=== PATIENT | female | born 1955 | race Asian ===

== ENCOUNTER 2019-03-25 13:52 | Inpatient (IN) | payer BC ==
[2019-03-25] VITALS (10 sets, daily range): BP systolic 129–147; BP diastolic 61–96
[~2019-03-25] VITALS: Ht 160 cm; Wt 68.2 kg
[2019-03-25] MEDS ORDERED: morphine 4 MG/ML inj SYRINge IV PRN ×3 (14:20→16:00)
[2019-03-25] MEDS ORDERED: ondansetron/PF 4mg/2ml inj IV ONE (14:20)
[2019-03-25] MEDS ORDERED: normal saline 1000ML IV soln IVB ONE (14:20)
[2019-03-25 14:52] LABS: URINE HCG NEGATIVE (NEG)
[2019-03-25 14:53] LABS: CLARITY,URINE CLEAR (Clear); COLOR,URINE YELLOW (Yellow); GLUCOSE, URINE NEGATIVE (Neg); KETONES,URINE NEGATIVE (Neg); LEUKOCYTE ESTERASE ,URINE NEGATIVE (Neg); NITRITES, URINE NEGATIVE (Neg); OCCULT BLOOD,URINE TRACE-INTACT (Neg); PH,URINE 6.5 (4.8-8.0); PROTEIN,URINE NEGATIVE (Neg); UROBILINOGEN,URINE 0.2 E.U/dL (0.2-1.0)
[2019-03-25 14:56] LABS: UA COLLECTION TYPE CLN CATCH MIDSTREAM
[2019-03-25 15:06] LABS: MUCUS STRANDS FEW /LPF (Neg); SQUAMOUS EPITHELIAL CELL,UR FEW /LPF (FEW)
[2019-03-25 15:08] LABS: BACTERIA,URINE 1+ /HPF (Neg); RBC,URINE 0-2 /HPF (0-2); WBC,URINE 0-4 /HPF (0-4)
[2019-03-25 15:09] LABS: ALANINE AMINOTRANSFERASE 26 U/L (12-78); ALBUMIN/GLOBULIN RATIO 1.1 (1.1-1.5); ALKALINE PHOSPHATASE 67 IU/L (46-116); ANION GAP 11 (8-16); ASPARTATE AMINO TRANSFERASE 12 U/L (10-37); BILIRUBIN,TOTAL 0.6 MG/DL (0.1-1.0); BLOOD UREA NITROGEN 17 MG/DL (7-18); BUN/CREATININE RATIO 14.9 (6.6-38.0); CALCIUM 9.2 MG/DL (8.5-10.1); CHLORIDE 104 MMOL/L (99-107); CREATININE 1.14 MG/DL (0.40-0.90); GLUCOSE 94 MG/DL (70-104); LIPASE 219 U/L (73-393); POTASSIUM 3.6 MMOL/L (3.5-5.1); SODIUM 143 MMOL/L (135-145); TOTAL PROTEIN 7.8 G/DL (6.4-8.2); eGFR 48 ML/MIN
[2019-03-25 15:09] LABS: AMORPHOUS PHOSPHATES 2+
--- NOTE | 2019-03-25 15:18 | NUR ---
Ailyn lee in [facility] - 03/25/19 at 1522 by JUAN PT OUT TO CT VIA WHEELCHAIR WITH WINDOWS SUPPORT ENGINEER
[2019-03-25 15:19] LABS: BASOPHILS % (AUTO) 0.3 % (0-1); EOSINOPHILS % (AUTO) 0.3 % (0-6); HEMATOCRIT 46.8 % (35.0-45.0); HEMOGLOBIN 16.3 g/dl (12.0-16.0); LYMPHOCYTES # (AUTO) 0.9 X10'3 (1.1-4.8); LYMPHOCYTES % (AUTO) 6.7 % (21-51); MEAN CORPUSCULAR HEMOGLOBIN 31.6 PG (27.0-31.0); MEAN CORPUSCULAR HGB CONC 34.8 g/dL (33.0-36.5); MEAN CORPUSCULAR VOLUME 90.9 FL (78-98); MEAN PLATELET VOLUME 7.9 FL (7.4-10.4); MONOCYTES # (AUTO) 0.6 X10'3 (0-0.9); MONOCYTES % (AUTO) 4.6 % (2-12); NEUTROPHILS # (AUTO) 11.6 X10'3 (1.8-7.7); NEUTROPHILS % (AUTO) 88.1 % (42-75); PLATELET COUNT 154 X10'3 (140-440); RED BLOOD COUNT 5.14 X10'6 (4.20-5.60); RED CELL DISTRIBUTION WIDTH 13.5 % (11.5-14.5); WHITE BLOOD COUNT 13.1 X10'3 (4.5-11.0)
[2019-03-25] MEDS ORDERED: normal saline 1000ml 1,000 ML IV ONE (15:25)
[2019-03-25] MEDS ORDERED: LEVO25TA2 PO (15:36)
[2019-03-25] MEDS ORDERED: FENO48TA16 PO (15:36)
[2019-03-25] MEDS ORDERED: piperacillin/tazo 3.375gm/50ml 50 ML IV ONE (15:40)
[2019-03-25] MEDS ORDERED: HYDROcodone/acetaminophen 5mg/325mg tablet PO PRN (15:45)
[2019-03-25] MEDS ORDERED: ondansetron/PF 4mg/2ml inj IV PRN ×2 (15:45→16:00)
[2019-03-25] MEDS: normal saline 1000ml 1,000 ML IV SCH (15:45)
[2019-03-25] MEDS ORDERED: morphine 2 MG/ML inj. syringe IV PRN (15:45)
[2019-03-25] MEDS ORDERED: magnesium 4gm in 100ml NS 100 ML IV PRN (15:45)
[2019-03-25] MEDS ORDERED: magnesium Cl slow-release 64mg tablet PO PRN (15:45)
[2019-03-25] MEDS ORDERED: mag hydrox/Alum hydrox/simeth 30ml oral suspension PO PRN (15:45)
[2019-03-25] MEDS ORDERED: magnesium hydroxide 30ml (MOM) UD suspension PO PRN (15:45)
[2019-03-25] MEDS ORDERED: magnesium 2GM in 50ml NS 50 ML IV PRN (15:45)
[2019-03-25] MEDS ORDERED: potassium Cl 20 mEq SR tablet PO PRN ×2 (15:45)
[2019-03-25] MEDS ORDERED: potassium CL 10mEq/100ml bag 100 ML IV PRN ×2 (15:45)
[2019-03-25] MEDS ORDERED: ringers solution, lacted 1,000 ML IV SCH (15:59)
[2019-03-25] MEDS ORDERED: ringers solution, lacted 1,000 ML IV ONE (15:59)
[2019-03-25] MEDS ORDERED: labetalol 20mg/4ml (5mg/ml) syringe IV PRN (16:00)
[2019-03-25] MEDS ORDERED: enalaprilat dihydrate 2.5mg/2ml vial IV PRN (16:00)
[2019-03-25] MEDS ORDERED: fentaNYL/PF 50MCG/1 ML 2ML syringe IV PRN ×2 (16:00)
[2019-03-25] MEDS: piperacillin/tazo 3.375gm/50ml 50 ML IV SCH (16:00)
[2019-03-25] MEDS: morphine 2 MG/ML inj. syringe IV PRN ×2 (18:53→23:12)
[2019-03-25] MEDS ORDERED: ceFAZolin 1000mg inj ONE (18:55)
[2019-03-25] MEDS ORDERED: BUPIVAcaine/PF 2.5 mg/ml (0.25%) 30ml vial ONE (18:55)
--- NOTE | 2019-03-25 19:23 | NUR ---
REPORT GIVEN TO OR TECH - PT WAS GIVEN ZOSYN BY DAY SHIFT AND THEN PHARMACY BROUGHT ANOTHER. IT HAS NOT BEEN GIVEN AND WAS SENT WITH PT - SHE HAS ALL CLOTHING REMOVED, EXTENSION SET ON IV TUBING, EKG HAS BEEN DONE, CONSENT ON CHART, SURGICAL WIPES USED ON ABD.
[2019-03-25] MEDS ORDERED: fentaNYL/PF 50MCG/1 ML 2ML syringe ONE ×2 (19:32→20:29)
[2019-03-25] MEDS ORDERED: midazolam 2 mg/2 ml injection ONE (19:32)
[2019-03-25] MEDS ORDERED: ondansetron/PF 4mg/2ml inj ONE ×2 (19:35→20:29)
[2019-03-25] MEDS ORDERED: dexamethasone sod phosphate 10mg/ml inj ONE (19:55)
[2019-03-25] MEDS ORDERED: rocuronium 10mg/ml inj IV ONE (19:55)
[2019-03-25] MEDS ORDERED: sevoflurane 250ml liquid IH ONE (19:55)
[2019-03-25] MEDS ORDERED: glycopyrrolate 0.2mg/ml inj ONE (19:55)
[2019-03-25] MEDS ORDERED: neostigmine methylsulfate 1 MG/ML 10ml vial ONE (19:55)
[2019-03-25] MEDS: lactobacillus rhamnosus 10,000 MMU CELLS/CAPSULE PO SCH (20:00)
[2019-03-25] MEDS ORDERED: LIDOcaine 2% (20mg/ml) 5ml vial ONE (20:29)
[2019-03-25] MEDS ORDERED: propofol inj 20 ML IV ONE (20:29)
[2019-03-25] MEDS ORDERED: gentamicin 40 MG/1 ML inj ONE (20:51)
[2019-03-25] MEDS ORDERED: clindamycin phosphate 150mg/ml inj. ONE (20:51)
[2019-03-25] MEDS ORDERED: BUPIVACAINE liposomal/PF 13.3 MG/ML vial IM ONE ×2 (21:00→21:01)
[2019-03-25] MEDS ORDERED: BUPIVAcaine/PF 2.5mg/ml (0.25%) 10ml vial ONE (21:01)
--- NOTE | 2019-03-25 21:33 | NUR ---
Received from OR via , accompanied by Anesthesiologist DR REYES and report given by Anesthesiolgist. AWAKENS TO VOICE. VITALS STABLE. DRESSING DI. YEHUDA PAIN. MADDISON WITH SM AMNT SERO SANG FLUID IN THE BULB.
--- NOTE | 2019-03-25 21:59 | NUR ---
Received report from Recovery nurse Shon BELL. Will assume care.
--- NOTE | 2019-03-25 22:13 | NUR ---
Report called to receiving nurse. Transferred via BED Belongings . Special Issues communicated to receiving nurse. AWAKE AND ORIENTED. VITALS STABLE. DRESSING DI. YEHUDA PAIN. TO SURGICAL RM 354A AT THIS TIME.
--- NOTE | 2019-03-25 22:20 | NUR ---
Patient arrived to floor awake and oriented to person, place, time. Patient noted to have Rausch cath in place draining clear yellow urine. Dressing to Abdomen is CDI. MADDISON drainage noted to RLQ wtih Serosanguinous drainage. Patient c/o pain 7/10 to right abd. Will continue with care. at bedside.
[2019-03-25] MEDS: K and/or MAG REPLACEMENT MC SCH (22:29)
[2019-03-26] VITALS (7 sets, daily range): BP systolic 102–121; BP diastolic 54–63
[2019-03-26] MEDS: normal saline 1000ml 1,000 ML IV SCH ×3 (00:32→17:22)
[2019-03-26] MEDS: piperacillin/tazo 3.375gm/50ml 50 ML IV SCH ×3 (00:32→16:13)
[2019-03-26] MEDS: HYDROcodone/acetaminophen 10/325mg tab PO PRN (00:39)
[2019-03-26 05:08] LABS: BASOPHILS % (AUTO) 0.1 % (0-1); EOSINOPHILS % (AUTO) 0 % (0-6); HEMATOCRIT 43.1 % (35.0-45.0); LYMPHOCYTES # (AUTO) 0.6 X10'3 (1.1-4.8); LYMPHOCYTES % (AUTO) 4.8 % (21-51); MEAN CORPUSCULAR HEMOGLOBIN 31.4 PG (27.0-31.0); MEAN CORPUSCULAR HGB CONC 34.7 g/dL (33.0-36.5); MEAN CORPUSCULAR VOLUME 90.3 FL (78-98); MEAN PLATELET VOLUME 8.1 FL (7.4-10.4); MONOCYTES # (AUTO) 0.4 X10'3 (0-0.9); MONOCYTES % (AUTO) 3.5 % (2-12); NEUTROPHILS # (AUTO) 10.8 X10'3 (1.8-7.7); NEUTROPHILS % (AUTO) 91.6 % (42-75); PLATELET COUNT 151 X10'3 (140-440); RED BLOOD COUNT 4.77 X10'6 (4.20-5.60); RED CELL DISTRIBUTION WIDTH 13.3 % (11.5-14.5); WHITE BLOOD COUNT 11.8 X10'3 (4.5-11.0)
[2019-03-26 05:26] LABS: ANION GAP 8 (8-16); BLOOD UREA NITROGEN 15 MG/DL (7-18); CALCIUM 8.5 MG/DL (8.5-10.1); CHLORIDE 104 MMOL/L (99-107); CREATININE 1.07 MG/DL (0.40-0.90); GLUCOSE 155 MG/DL (70-104); MAGNESIUM 1.5 MG/DL (1.5-2.4); POTASSIUM 3.8 MMOL/L (3.5-5.1); SODIUM 139 MMOL/L (135-145); TOTAL CARBON DIOXIDE 26.9 MMOL/L (24-32); eGFR 52 ML/MIN
--- NOTE | 2019-03-26 06:00 | NUR ---
Arusch cath removed this morning @0550 According to SCIP protocol POD#0. Patient educated to inform nursing staff when she has to void.
--- NOTE | 2019-03-26 06:47 | NUR ---
Patient in room [facility]. I have received report from ARY Miller and had the opportunity to ask questions and assume patient care.
[2019-03-26] MEDS: K and/or MAG REPLACEMENT MC SCH ×2 (07:10→20:00)
[2019-03-26] MEDS: lactobacillus rhamnosus 10,000 MMU CELLS/CAPSULE PO SCH ×2 (08:40→22:02)
[2019-03-26] MEDS: levoTHYROXINE 25mcg tablet PO SCH (08:40)
[2019-03-26] MEDS: fenofibrate 48mg tablet PO SCH (08:41)
[2019-03-26] MEDS: enoxaparin 40mg/0.4ml syringe SQ SCH (08:42)
--- NOTE | 2019-03-26 11:25 | NUR ---
patient stated feeling discomfort and an inability to fully empty bladder. Patient bladder scanned and this showed 690 mL of urine in bladder. Dr. Moseley informed and an order for a x1 straight cath received.
--- NOTE | 2019-03-26 11:42 | NUR ---
Patient straight cath'd and 800mL of urine out. Patient states feeling much more comfortable now.
--- NOTE | 2019-03-26 18:32 | NUR ---
Problems reprioritized. Patient report given, questions answered & plan of care reviewed with RAY Miller.
[2019-03-27] VITALS: BP 135/60
[2019-03-27] MEDS: piperacillin/tazo 3.375gm/50ml 50 ML IV SCH ×3 (00:51→16:28)
[2019-03-27] MEDS: acetaminophen 325mg tablet PO PRN (01:23)
[2019-03-27] MEDS: normal saline 1000ml 1,000 ML IV SCH ×2 (03:55→13:53)
[2019-03-27 05:59] LABS: BASOPHILS % (AUTO) 0 % (0-1); EOSINOPHILS % (AUTO) 0 % (0-6); HEMATOCRIT 37.6 % (35.0-45.0); HEMOGLOBIN 13.2 g/dl (12.0-16.0); LYMPHOCYTES # (AUTO) 0.9 X10'3 (1.1-4.8); LYMPHOCYTES % (AUTO) 8.8 % (21-51); MEAN CORPUSCULAR HEMOGLOBIN 31.1 PG (27.0-31.0); MEAN CORPUSCULAR HGB CONC 35.2 g/dL (33.0-36.5); MEAN CORPUSCULAR VOLUME 88.4 FL (78-98); MEAN PLATELET VOLUME 8.5 FL (7.4-10.4); MONOCYTES # (AUTO) 0.5 X10'3 (0-0.9); MONOCYTES % (AUTO) 4.6 % (2-12); NEUTROPHILS # (AUTO) 8.9 X10'3 (1.8-7.7); NEUTROPHILS % (AUTO) 86.6 % (42-75); PLATELET COUNT 166 X10'3 (140-440); RED BLOOD COUNT 4.25 X10'6 (4.20-5.60); RED CELL DISTRIBUTION WIDTH 13.2 % (11.5-14.5); WHITE BLOOD COUNT 10.3 X10'3 (4.5-11.0)
[2019-03-27 06:06] LABS: ALBUMIN 2.6 G/DL (3.4-5.0); ANION GAP 7 (8-16); BLOOD UREA NITROGEN 12 MG/DL (7-18); CALCIUM 8.7 MG/DL (8.5-10.1); CHLORIDE 109 MMOL/L (99-107); GLUCOSE 109 MG/DL (70-104); MAGNESIUM 1.8 MG/DL (1.5-2.4); POTASSIUM 3.6 MMOL/L (3.5-5.1); SODIUM 142 MMOL/L (135-145); TOTAL CARBON DIOXIDE 26.3 MMOL/L (24-32); eGFR 56 ML/MIN
--- NOTE | 2019-03-27 06:25 | NUR ---
Patient in room [facility]. I have received report from RAY Miller and had the opportunity to ask questions and assume patient care.
[2019-03-27] MEDS: K and/or MAG REPLACEMENT MC SCH ×2 (07:03→20:00)
[2019-03-27 07:13] VITALS: BP 93/46
[2019-03-27] MEDS: lactobacillus rhamnosus 10,000 MMU CELLS/CAPSULE PO SCH ×2 (08:44→21:01)
[2019-03-27] MEDS: fenofibrate 48mg tablet PO SCH (08:44)
[2019-03-27] MEDS: levoTHYROXINE 25mcg tablet PO SCH (08:44)
[2019-03-27] MEDS: enoxaparin 40mg/0.4ml syringe SQ SCH (08:44)
[2019-03-27 11:00] VITALS: BP 117/55
--- NOTE | 2019-03-27 18:45 | NUR ---
Problems reprioritized. Patient report given, questions answered & plan of care reviewed with Amanda RN.
[2019-03-27 19:30] VITALS: BP 135/75
--- NOTE | 2019-03-27 19:30 | NUR ---
pt aware to call for bladder scan after voiding if feeling she is retaining urine Addendum: 03/28/19 at 0219 by Rosita Ivey RN Amended: Links added.
[2019-03-28] VITALS: BP 126/60
[2019-03-28] MEDS: HYDROcodone/acetaminophen 10/325mg tab PO PRN (00:03)
[2019-03-28] MEDS: piperacillin/tazo 3.375gm/50ml 50 ML IV SCH ×3 (00:07→16:03)
[2019-03-28] MEDS: normal saline 1000ml 1,000 ML IV SCH ×3 (00:07→19:42)
[2019-03-28] MEDS: acetaminophen 325mg tablet PO PRN ×3 (04:10→18:22)
[2019-03-28 05:57] LABS: BASOPHILS % (AUTO) 0.3 % (0-1); EOSINOPHILS # (AUTO) 0.1 X10'3 (0-0.9); HEMATOCRIT 39.5 % (35.0-45.0); HEMOGLOBIN 13.8 g/dl (12.0-16.0); LYMPHOCYTES # (AUTO) 1.2 X10'3 (1.1-4.8); LYMPHOCYTES % (AUTO) 18.4 % (21-51); MEAN CORPUSCULAR HEMOGLOBIN 31.2 PG (27.0-31.0); MEAN CORPUSCULAR VOLUME 89.1 FL (78-98); MEAN PLATELET VOLUME 8.3 FL (7.4-10.4); MONOCYTES # (AUTO) 0.4 X10'3 (0-0.9); MONOCYTES % (AUTO) 6.3 % (2-12); NEUTROPHILS # (AUTO) 4.9 X10'3 (1.8-7.7); PLATELET COUNT 181 X10'3 (140-440); RED BLOOD COUNT 4.43 X10'6 (4.20-5.60); RED CELL DISTRIBUTION WIDTH 13.2 % (11.5-14.5); WHITE BLOOD COUNT 6.7 X10'3 (4.5-11.0)
[2019-03-28 06:15] LABS: ALBUMIN 2.7 G/DL (3.4-5.0); ANION GAP 3 (8-16); BLOOD UREA NITROGEN 12 MG/DL (7-18); BUN/CREATININE RATIO 12.8 (6.6-38.0); CALCIUM 8.7 MG/DL (8.5-10.1); CHLORIDE 109 MMOL/L (99-107); CREATININE 0.94 MG/DL (0.40-0.90); GLUCOSE 95 MG/DL (70-104); MAGNESIUM 1.8 MG/DL (1.5-2.4); POTASSIUM 3.5 MMOL/L (3.5-5.1); SODIUM 142 MMOL/L (135-145); TOTAL CARBON DIOXIDE 29.8 MMOL/L (24-32); eGFR 60 ML/MIN
[2019-03-28 06:30] VITALS: BP 115/56
--- NOTE | 2019-03-28 07:00 | NUR ---
Patient in room [facility]. I have received report from RAY Patel and had the opportunity to ask questions and assume patient care.
[2019-03-28] MEDS: K and/or MAG REPLACEMENT MC SCH ×2 (07:49→19:47)
[2019-03-28] MEDS: fenofibrate 48mg tablet PO SCH (08:54)
[2019-03-28] MEDS: enoxaparin 40mg/0.4ml syringe SQ SCH (08:54)
[2019-03-28] MEDS: levoTHYROXINE 25mcg tablet PO SCH (08:54)
[2019-03-28] MEDS: lactobacillus rhamnosus 10,000 MMU CELLS/CAPSULE PO SCH ×2 (08:54→19:42)
[2019-03-28 11:00] VITALS: BP 116/59
[2019-03-28 18:00] VITALS: BP 122/60
--- NOTE | 2019-03-28 18:15 | NUR ---
Problems reprioritized. Patient report given, questions answered & plan of care reviewed with RAY Joiner.
[2019-03-29] VITALS: BP 132/62
[2019-03-29] MEDS: piperacillin/tazo 3.375gm/50ml 50 ML IV SCH ×2 (00:29→08:43)
[2019-03-29 05:33] LABS: ALBUMIN 2.7 G/DL (3.4-5.0); ANION GAP 9 (8-16); BLOOD UREA NITROGEN 9 MG/DL (7-18); BUN/CREATININE RATIO 9.8 (6.6-38.0); CALCIUM 8.8 MG/DL (8.5-10.1); CHLORIDE 106 MMOL/L (99-107); CREATININE 0.92 MG/DL (0.40-0.90); GLUCOSE 88 MG/DL (70-104); MAGNESIUM 1.7 MG/DL (1.5-2.4); POTASSIUM 3.4 MMOL/L (3.5-5.1); SODIUM 141 MMOL/L (135-145); TOTAL CARBON DIOXIDE 25.6 MMOL/L (24-32); eGFR 62 ML/MIN
[2019-03-29 06:07] LABS: BASOPHILS % (AUTO) 0.3 % (0-1); EOSINOPHILS # (AUTO) 0.2 X10'3 (0-0.9); EOSINOPHILS % (AUTO) 2.9 % (0-6); HEMATOCRIT 41.4 % (35.0-45.0); HEMOGLOBIN 14.7 g/dl (12.0-16.0); LYMPHOCYTES # (AUTO) 1.1 X10'3 (1.1-4.8); LYMPHOCYTES % (AUTO) 17.4 % (21-51); MEAN CORPUSCULAR HEMOGLOBIN 31.5 PG (27.0-31.0); MEAN CORPUSCULAR HGB CONC 35.6 g/dL (33.0-36.5); MEAN CORPUSCULAR VOLUME 88.3 FL (78-98); MONOCYTES # (AUTO) 0.5 X10'3 (0-0.9); MONOCYTES % (AUTO) 7.7 % (2-12); NEUTROPHILS # (AUTO) 4.6 X10'3 (1.8-7.7); NEUTROPHILS % (AUTO) 71.7 % (42-75); PLATELET COUNT 207 X10'3 (140-440); RED BLOOD COUNT 4.69 X10'6 (4.20-5.60); RED CELL DISTRIBUTION WIDTH 13.1 % (11.5-14.5); WHITE BLOOD COUNT 6.4 X10'3 (4.5-11.0)
--- NOTE | 2019-03-29 06:25 | NUR ---
Patient in room [facility]. I have received report from RAY Joiner and had the opportunity to ask questions and assume patient care.
--- NOTE | 2019-03-29 06:25 | NUR ---
Problems reprioritized. Patient report given, questions answered & plan of care reviewed with RAY Fields.
[2019-03-29 06:30] VITALS: BP 126/62
[2019-03-29] MEDS: K and/or MAG REPLACEMENT MC SCH (06:58)
[2019-03-29] MEDS ORDERED: potassium CL 10mEq/100ml bag 100 ML IV PRN (07:00)
[2019-03-29] MEDS ORDERED: magnesium 2GM in 50ml NS 50 ML IV PRN (07:00)
[2019-03-29] MEDS ORDERED: magnesium 4gm in 100ml NS 100 ML IV PRN (07:00)
[2019-03-29] MEDS ORDERED: magnesium Cl slow-release 64mg tablet PO PRN (07:00)
[2019-03-29] MEDS ORDERED: potassium Cl 20 mEq SR tablet PO PRN ×2 (07:00)
[2019-03-29] MEDS: levoTHYROXINE 25mcg tablet PO SCH (08:42)
[2019-03-29] MEDS: fenofibrate 48mg tablet PO SCH (08:42)
[2019-03-29] MEDS: lactobacillus rhamnosus 10,000 MMU CELLS/CAPSULE PO SCH (08:43)
[2019-03-29] MEDS: enoxaparin 40mg/0.4ml syringe SQ SCH (08:43)
[2019-03-29] MEDS ORDERED: acetaminophen 325mg tablet PO PRN (09:05)
[2019-03-29] MEDS ORDERED: ONDA4TAB6 PO (10:35)
[2019-03-29 11:00] VITALS: BP 118/61
--- NOTE | 2019-03-29 12:00 | NUR ---
DC inst provided to pt. ELISEOs DC'd, tips intact. All belongings sent w/pt. WC to front lobby.
== END 2019-03-29 12:05 | disposition home or self-care (01) | DRG 335 ==
LOC: ER 13:53 → ED HOLD 15:45 → SUR 3N 21:56
PROVIDERS: ADMIT Hospitalist; ATTEND Internal Medicine
PROC: 0DNH0ZZ Release Cecum, Open Approach (ICD-10-PCS; 2019-03-25)
PROC: 0WJG4ZZ Inspection of Peritoneal Cavity, Percutaneous Endoscopic Approach (ICD-10-PCS; 2019-03-25)
PROC: 0WQF0ZZ Repair Abdominal Wall, Open Approach (ICD-10-PCS; 2019-03-25)
PROC: 3E0T3BZ Introduction of Anesthetic Agent into Peripheral Nerves and Plexi, Percutaneous Approach (ICD-10-PCS; 2019-03-25)
PROC: 0DTJ0ZZ Resection of Appendix, Open Approach (ICD-10-PCS; principal; 2019-03-25 19:55)
DX: K42.9 Umbilical hernia without obstruction or gangrene (principal); K35.32 Acute appendicitis with perforation, localized peritonitis, and gangrene, without abscess; K56.7 Ileus, unspecified; E03.9 Hypothyroidism, unspecified; E78.5 Hyperlipidemia, unspecified; K66.0 Peritoneal adhesions (postprocedural) (postinfection); E86.0 Dehydration; Z90.49 Acquired absence of other specified parts of digestive tract; Z79.899 Other long term (current) drug therapy; Z79.890 Hormone replacement therapy
CPT/HCPCS: 96374; 96375; 99285; Z7506; Z7508; 36415; 74176; 80048; 80053; 81001; 81025; 82948; 83690; 83735; 84132; 85025; 85610; 87081; A4215; A4314; A4618; A6253; A6407; A6449; A7000; C9290; G0378; J0690; J1100; J1580; J1650; J2001; J2250; J2270; J2405; J2543; J2704; J2710; J3010; J3490; J7030; J7120

== ENCOUNTER 2020-08-21 17:39 | Emergency (ER) | payer BC ==
[~2020-08-21] VITALS: Ht 157.5 cm; Wt 71.3 kg
[~2020-08-21 17:39] MED LIST: FENO48TA9 PO; LEVO25TA2 PO; ONDA4TAB6 PO
[2020-08-21 18:34] LABS: CLARITY,URINE SLIGHTLY CLOUDY (Clear); COLOR,URINE YELLOW (Yellow); GLUCOSE, URINE NEGATIVE (Neg); KETONES,URINE NEGATIVE (Neg); LEUKOCYTE ESTERASE ,URINE NEGATIVE (Neg); NITRITES, URINE NEGATIVE (Neg); OCCULT BLOOD,URINE TRACE-INTACT (Neg); PROTEIN,URINE NEGATIVE (Neg); UROBILINOGEN,URINE 0.2 E.U/dL (0.2-1.0)
[2020-08-21 18:53] LABS: UA COLLECTION TYPE CLN CATCH MIDSTREAM
[2020-08-21 19:08] LABS: AMORPHOUS PHOSPHATES 2+; BACTERIA,URINE NONE SEEN /HPF (Neg); MUCUS STRANDS NONE SEEN /LPF (Neg); RBC,URINE 0-2 /HPF (0-2); SQUAMOUS EPITHELIAL CELL,UR NONE SEEN /LPF (FEW); WBC,URINE 0-4 /HPF (0-4)
[2020-08-21] MEDS ORDERED: acetaminophen 325mg tablet PO ONE (19:25)
[2020-08-21 20:00] LABS: BASOPHILS % (AUTO) 0.2 % (0-1); EOSINOPHILS % (AUTO) 0.2 % (0-6); HEMOGLOBIN 17.2 g/dl (12.0-16.0); LYMPHOCYTES # (AUTO) 1.1 X10'3 (1.1-4.8); LYMPHOCYTES % (AUTO) 11.2 % (21-51); MEAN CORPUSCULAR HEMOGLOBIN 31.2 PG (27.0-31.0); MEAN CORPUSCULAR HGB CONC 34.5 g/dL (33.0-36.5); MEAN CORPUSCULAR VOLUME 90.5 FL (78-98); MEAN PLATELET VOLUME 7.9 FL (7.4-10.4); MONOCYTES # (AUTO) 0.6 X10'3 (0-0.9); MONOCYTES % (AUTO) 6.3 % (2-12); NEUTROPHILS # (AUTO) 8.3 X10'3 (1.8-7.7); NEUTROPHILS % (AUTO) 82.1 % (42-75); PLATELET COUNT 190 X10'3 (140-440); RED BLOOD COUNT 5.53 X10'6 (4.20-5.60); RED CELL DISTRIBUTION WIDTH 12.9 % (11.5-14.5); WHITE BLOOD COUNT 10.1 X10'3 (4.5-11.0)
[2020-08-21 20:11] LABS: ALANINE AMINOTRANSFERASE 29 U/L (12-78); ALBUMIN 3.7 G/DL (3.4-5.0); ALBUMIN/GLOBULIN RATIO 1.1 (1.1-1.5); ALKALINE PHOSPHATASE 76 IU/L (46-116); ANION GAP 8 (8-16); ASPARTATE AMINO TRANSFERASE 15 U/L (10-37); BILIRUBIN,TOTAL 0.4 MG/DL (0.1-1.0); BLOOD UREA NITROGEN 15 MG/DL (7-18); BUN/CREATININE RATIO 12.8 (6.6-38.0); CALCIUM 9.1 MG/DL (8.5-10.1); CHLORIDE 106 MMOL/L (99-107); CREATININE 1.17 MG/DL (0.40-0.90); GLUCOSE 93 MG/DL (70-104); LIPASE 109 U/L (73-393); POTASSIUM 3.8 MMOL/L (3.5-5.1); SODIUM 143 MMOL/L (135-145); TOTAL CARBON DIOXIDE 29.2 MMOL/L (24-32); eGFR 47 ML/MIN
[2020-08-21] MEDS ORDERED: ONDA4TAB6 PO (21:08)
[2020-08-21] MEDS ORDERED: AMOX-115 PO (21:08)
[2020-08-21] MEDS ORDERED: amox tr/potassium clavulanate 875/125mg TAB PO ONE (21:10)
[2020-08-21] MEDS ORDERED: ondansetron 4mg rapidly disintigrating tab PO ONE (21:10)
[2020-08-21 21:31] VITALS: BP 132/76
== END 2020-08-21 21:28 | disposition home or self-care (01) ==
LOC: ER 17:39
DX: K57.92 Diverticulitis of intestine, part unspecified, without perforation or abscess without bleeding (principal); Z90.49 Acquired absence of other specified parts of digestive tract; Z79.899 Other long term (current) drug therapy
CPT/HCPCS: 36415; 74176; 80053; 81001; 83690; 84145; 85025; 99284

== ENCOUNTER 2020-10-19 09:53 | Inpatient (IN) | payer BC ==
[2020-10-13 18:05] LABS: CLARITY,URINE CLEAR (Clear); COLOR,URINE YELLOW (Yellow); GLUCOSE, URINE NEGATIVE (Neg); KETONES,URINE NEGATIVE (Neg); LEUKOCYTE ESTERASE ,URINE NEGATIVE (Neg); NITRITES, URINE NEGATIVE (Neg); OCCULT BLOOD,URINE NEGATIVE (Neg); PROTEIN,URINE NEGATIVE (Neg); UROBILINOGEN,URINE 0.2 E.U/dL (0.2-1.0)
[2020-10-13 18:16] LABS: BASOPHILS % (AUTO) 0.5 % (0-1); EOSINOPHILS # (AUTO) 0.2 X10'3 (0-0.9); EOSINOPHILS % (AUTO) 2.8 % (0-6); LYMPHOCYTES # (AUTO) 1.5 X10'3 (1.1-4.8); LYMPHOCYTES % (AUTO) 27.2 % (21-51); MEAN CORPUSCULAR HGB CONC 34.8 g/dL (33.0-36.5); MEAN CORPUSCULAR VOLUME 86.4 FL (78-98); MEAN PLATELET VOLUME 7.8 FL (7.4-10.4); MONOCYTES # (AUTO) 0.4 X10'3 (0-0.9); MONOCYTES % (AUTO) 7.4 % (2-12); NEUTROPHILS # (AUTO) 3.4 X10'3 (1.8-7.7); NEUTROPHILS % (AUTO) 62.1 % (42-75); PRE OP HEMATOCRIT 45.7 % (35.0-45.0); PRE OP HEMOGLOBIN 15.9 g/dL (12.0-16.0); PRE OP PLATELET COUNT 218 X10'3 (140-440); RED BLOOD COUNT 5.29 X10'6 (4.20-5.60); RED CELL DISTRIBUTION WIDTH 12.8 % (11.5-14.5)
[2020-10-13 18:16] LABS: UA COLLECTION TYPE CLN CATCH MIDSTREAM
[2020-10-13 18:27] LABS: ALBUMIN/GLOBULIN RATIO 1.1 (1.1-1.5); ALKALINE PHOSPHATASE 67 IU/L (46-116); BLOOD UREA NITROGEN 26 MG/DL (7-18); BUN/CREATININE RATIO 29.2 (6.6-38.0); CALCIUM 9.2 MG/DL (8.5-10.1); CHLORIDE 105 MMOL/L (99-107); CREATININE 0.89 MG/DL (0.40-0.90); PRE OP ALT 34 U/L (30-65); PRE OP ANION GAP 8 (8-16); PRE OP AST 18 U/L (10-37); PRE OP BILIRUB, TOTAL 0.4 MG/DL (0.0-1.0); PRE OP GLUCOSE 97 MG/DL (70-104); PRE OP POTASSIUM 3.5 MMOL/L (3.4-5.1); PRE OP SODIUM 141 MMOL/L (135-145); TOTAL CARBON DIOXIDE 27.8 MMOL/L (24-32); TOTAL PROTEIN 7.6 G/DL (6.4-8.2); eGFR 64 ML/MIN
[2020-10-19] VITALS (25 sets, daily range): BP systolic 123–155; BP diastolic 61–79
[~2020-10-19] VITALS: Ht 157.5 cm; Wt 65.3 kg
[~2020-10-19 09:53] MED LIST changes: +BUPIVAcaine/PF 2.5 mg/ml (0.25%) 30ml vial ONE; +CHOL100025 PO; +IPRA30SP; -ONDA4TAB6 PO; +TEMA15CA PO; +ceFOXitin 2GM-NS 100mL ADDvant 100 ML IV ONE; +famotidine 20mg tablet PO ONE; +ringers solution, lacted 1,000 ML IV SCH
[2020-10-19] MEDS ORDERED: glycopyrrolate 0.2mg/ml inj ONE (12:00)
[2020-10-19] MEDS ORDERED: neostigmine methylsulfate 1 MG/ML 10ml vial ONE (12:00)
[2020-10-19] MEDS ORDERED: dexamethasone sod phosphate 10mg/ml inj ONE (12:00)
[2020-10-19] MEDS ORDERED: sevoflurane 250ml liquid IH ONE (12:00)
[2020-10-19] MEDS ORDERED: LIDOcaine 1%/PF 5ML 10 MG/ML VIAL ONE (12:00)
[2020-10-19] MEDS ORDERED: rocuronium 10mg/ml inj IV ONE (12:00)
[2020-10-19] MEDS ORDERED: fentaNYL/PF 50MCG/1 ML 2ML syringe ONE (12:00)
[2020-10-19] MEDS ORDERED: midazolam 1 mg/ML 2ml injection ONE (12:00)
[2020-10-19] MEDS ORDERED: ondansetron/PF 4mg/2ml inj ONE (12:00)
[2020-10-19] MEDS ORDERED: propofol 10mg/ml 20ml vial IV ONE (12:00)
[2020-10-19] MEDS ORDERED: iohexol 300 MG/1 ML 50ml polymer ONE (12:15)
[2020-10-19] MEDS ORDERED: BUPIVACAINE liposomal/PF 13.3 MG/ML vial IM ONE (12:41)
[2020-10-19] MEDS ORDERED: BUPIVAcaine/PF 2.5mg/ml (0.25%) 10ml vial ONE (12:41)
[2020-10-19] MEDS ORDERED: proCHLORperazine 10 MG/2 ml inj IV PRN (13:15)
[2020-10-19] MEDS ORDERED: morphine 2 MG/ML inj. syringe IV PRN (13:15)
[2020-10-19] MEDS ORDERED: meperidine/PF 25mg/ml syringe IV PRN ×2 (13:15)
[2020-10-19] MEDS ORDERED: ringers solution, lacted 1,000 ML IV SCH (13:15)
[2020-10-19] MEDS ORDERED: ondansetron/PF 4mg/2ml inj IV PRN (13:15)
[2020-10-19] MEDS ORDERED: morphine 4 MG/ML inj SYRINge IV PRN (13:15)
--- NOTE | 2020-10-19 14:32 | NUR ---
Received from OR via , accompanied by Anesthesiologist DR REEVES and report given by Anesthesiolgist. PT PRESENTS WITH 20G LEFT WRIST, ABD DRESSSING DRY AND INTACT, [place] CATHETER WITH 200 MLS OUTPUT. VSS. Addendum: 10/19/20 at 1442 by Latricia Kulkarni RN, RN Amended: Links added.
[2020-10-19] MEDS: meperidine/PF 25mg/ml syringe IV PRN ×2 (14:54→15:15)
[2020-10-19] MEDS ORDERED: naloxone 0.4 mg/ml inj IV PRN (16:10)
[2020-10-19] MEDS ORDERED: CADD PCA waste documentation MC PRN (16:10)
--- NOTE | 2020-10-19 16:12 | NUR ---
PATIENT TAKEN TO ROOM WITH ALL BELONGINGS AND HOOKED UP TO MONITORS IN ROOM AND REPORT GIVEN TO RAY CLANCY WHO HAS TAKEN OVER PATIENT CARE. Addendum: 10/19/20 at 1648 by Latricia Herrmann - RAY BELL Amended: Links added.
[2020-10-19] MEDS: morphine/NS 1 mg/ml 50ml CADD 50 ML IV SCH ×3 (17:24→21:51)
[2020-10-19] MEDS: Potassium Cl inj 20 MEQ in ringers solution, lacted 1,000 ML IV SCH ×2 (17:29→23:57)
--- NOTE | 2020-10-19 19:00 | NUR ---
CADD Setting check completed: concentration 1mg/1ml dose: 1mg lockout interval: 10min Residual volume 46.7. 2 doses/2 attempts. 2.00mg given. patient rates pain 4/10 incisional ache in abdomen. respiratory rate 16.
[2020-10-19] MEDS: ondansetron/PF 4mg/2ml inj IV PRN (20:33)
[2020-10-20] MEDS: ceFOXitin inj 1,000 MG in normal saline 100ml IV soln 100 ML IV SCH ×2 (00:03→07:52)
[2020-10-20] MEDS: morphine/NS 1 mg/ml 50ml CADD 50 ML IV SCH ×6 (00:09→13:00)
--- NOTE | 2020-10-20 06:11 | NUR ---
Problems reprioritized. Patient report given, questions answered & plan of care reviewed with RAY Guerra.
--- NOTE | 2020-10-20 06:41 | NUR ---
Patient in room [facility]. I have received report from KASIA BELL and had the opportunity to ask questions and assume patient care.
[2020-10-20 07:40] VITALS: BP 132/61
[2020-10-20] MEDS: Potassium Cl inj 20 MEQ in ringers solution, lacted 1,000 ML IV SCH ×2 (09:35→17:08)
[2020-10-20 11:00] VITALS: BP 128/55
--- NOTE | 2020-10-20 18:31 | NUR ---
Problems reprioritized. Patient report given, questions answered & plan of care reviewed with Vance BELL.
[2020-10-20 19:11] VITALS: BP 136/51
[2020-10-20 19:15] VITALS: BP 116/63
--- NOTE | 2020-10-20 19:15 | NUR ---
Patient in room [facility]. I have received report from Charlie BELL and had the opportunity to ask questions and assume patient care.
[2020-10-20] MEDS: enoxaparin 40mg/0.4ml syringe SUBCUT SCH (19:16)
[2020-10-21] MEDS: acetaminophen 325mg tablet PO PRN ×2 (00:04→13:56)
[2020-10-21] MEDS: ondansetron/PF 4mg/2ml inj IV PRN ×3 (00:05→21:59)
[2020-10-21 00:25] VITALS: BP 134/61
[2020-10-21] MEDS: Potassium Cl inj 20 MEQ in ringers solution, lacted 1,000 ML IV SCH ×4 (03:11→23:57)
--- NOTE | 2020-10-21 06:16 | NUR ---
Problems reprioritized. Patient report given, questions answered & plan of care reviewed with Charlie RN.
--- NOTE | 2020-10-21 06:44 | NUR ---
Patient in room [facility]. I have received report from Vance BELL and had the opportunity to ask questions and assume patient care.
[2020-10-21 07:38] VITALS: BP 131/70
[2020-10-21] MEDS ORDERED: temazepam 15mg capsule PO PRN (10:05)
--- NOTE | 2020-10-21 10:44 | NUR ---
Pt straight cath'd per written orders. 425cc's tea colored urine drained. Pt tolerated well. Will continue to monitor.
[2020-10-21 11:00] VITALS: BP 113/54
--- NOTE | 2020-10-21 17:29 | NUR ---
Pt straight cath'd per written orders. 450cc's [place] urine drained. Pt tolerated well.
--- NOTE | 2020-10-21 18:24 | NUR ---
Patient in room [facility]. I have received report from Chralie BELL and had the opportunity to ask questions and assume patient care.
[2020-10-21] MEDS ORDERED: LIDOcaine 2% 10ml TOPICAL JELLY (Urojet) TP ONE (19:05)
--- NOTE | 2020-10-21 19:06 | NUR ---
Problems reprioritized. Patient report given, questions answered & plan of care reviewed with Vance BELL.
[2020-10-21 19:09] VITALS: BP 116/63
[2020-10-21] MEDS: enoxaparin 40mg/0.4ml syringe SUBCUT SCH (21:59)
[2020-10-21 23:42] VITALS: BP 113/58
--- NOTE | 2020-10-22 06:49 | NUR ---
Problems reprioritized. Patient report given, questions answered & plan of care reviewed with Ara BELL.
--- NOTE | 2020-10-22 06:53 | NUR ---
Patient in room [facility]. I have received report from Vance BELL and had the opportunity to ask questions and assume patient care.
[2020-10-22 07:00] VITALS: BP 123/54
[2020-10-22] MEDS: ondansetron/PF 4mg/2ml inj IV PRN (07:38)
[2020-10-22] MEDS ORDERED: fenofibrate 48mg tablet PO SCH (08:00)
[2020-10-22] MEDS ORDERED: cholecalciferol (vitamin D3) 1,000 unit (25mcg) tablet PO SCH (08:00)
[2020-10-22] MEDS ORDERED: levoTHYROXINE 25mcg tablet PO SCH (08:00)
[2020-10-22] MEDS: Potassium Cl inj 20 MEQ in ringers solution, lacted 1,000 ML IV SCH (08:45)
[2020-10-22] MEDS ORDERED: ONDA4TAB6 PO (15:38)
--- NOTE | 2020-10-22 17:28 | NUR ---
patient up and about voiding well in BR. 1200 mls hematuria observed. bladder scanned xt 50mls each time observed. DR Foy paged with regards DC plan. Patient is to be DC home to follow up oct 27. All Dc instructions given to patient. Patient DC home via private car to home with spouse in stable condition. dressings to abdomen CDI. 1600hrs
== END 2020-10-22 16:25 | disposition home or self-care (01) | DRG 331 ==
LOC: PAS IN 09:53 → SUR 3N 18:15
PROVIDERS: ADMIT Surgery; ATTEND Surgery
PROC: BT141ZZ Fluoroscopy of Kidneys, Ureters and Bladder using Low Osmolar Contrast (ICD-10-PCS; 2020-10-19)
PROC: 0DTN4ZZ Resection of Sigmoid Colon, Percutaneous Endoscopic Approach (ICD-10-PCS; principal; 2020-10-19 12:00)
PROC: 0T788DZ Dilation of Bilateral Ureters with Intraluminal Device, Via Natural or Artificial Opening Endoscopic (ICD-10-PCS; 2020-10-19 12:00)
DX: K57.92 Diverticulitis of intestine, part unspecified, without perforation or abscess without bleeding (principal); R33.9 Retention of urine, unspecified
CPT/HCPCS: Z7506; Z7508; 36415; 76000; 80053; 81003; 82948; 84443; 85025; 86885; 86900; 86901; 87081; A4215; A4355; A4618; A7000; C1758; C1769; C9290; G0378; J0694; J1100; J1650; J2175; J2250; J2270; J2405; J2704; J2710; J3010; J3480; J3490; J7030; J7120; Q9967; U0003; U0005